=== PATIENT | male | born 1965 | race Hispanic/Latino ===

== ENCOUNTER → 2024-02-08 09:54 | Outpatient (REF) | payer OTHER, SELFPAY ==
[2024-02-08 11:45] LABS: Microalbumin, Random Urine > 57.0 mg/dl (0.6-1.7)
[2024-02-08 12:05] LABS: Glycohemoglobin (HgbA1c) 11.4 % (4.0-5.6)
[2024-02-08 12:54] LABS: ALT (SGPT) 39 U/L (0-50); AST (SGOT) 30 U/L (17-59); Albumin 3.4 g/dl (3.5-5.0); Alkaline Phosphatase 183 U/L (38-126); Blood Urea Nitrogen 34 mg/dl (9-20); Calcium 8.8 mg/dl (8.4-10.2); Carbon Dioxide 27 mmol/L (22-30); Chloride 101 mmol/L (98-107); Glucose 259 mg/dl (70-99); HDL Cholesterol 39 mg/dl; LDL Cholesterol, Calculated 114 mg/dl; Potassium 5.6 mmol/L (3.5-5.1); Sodium 139 mmol/L (135-145); Total Bilirubin 0.3 mg/dl (0.2-1.3); Total Cholesterol 196 mg/dl (50-199); Total Protein 6.4 g/dl (6.3-8.2); Triglyceride 217 mg/dl (10-149); Very Low Density Lipoprotein 43 mg/dl (0-30); eGFR 34.29
== END ==
LOC: REG 09:54
PROVIDERS: ATTENDING PHYSICIAN Nurse Practitioner Adult Health
DX: I10 Essential (primary) hypertension (principal); E11.65 Type 2 diabetes mellitus with hyperglycemia; E78.5 Hyperlipidemia, unspecified
CPT/HCPCS: 36415; 80053; 80061; 82043; 82570; 83036

== ENCOUNTER 2024-06-19 11:44 | Emergency (ER) | payer SELFPAY ==
[2024-06-19 11:46] VITALS: BP 174/94
[2024-06-19 12:13] VITALS: BMI 31.9
[2024-06-19 12:20] VITALS: BP 169/90
--- NOTE | 2024-06-19 13:08 | ED.GENMED ---
History of Present Illness
General
Chief Complaint: Fall
Source: patient
Exam Limitations: none and other (critical care technician used)
Time Seen by Provider: 06/19/24 12:01
Nursing documentation reviewed up to this point in time: agreed with
History of Present Illness
History of Present Illness:
58-year-old male past ministry of diabetes hypertension hyperlipidemia presenting to the emergency department today after hitting the back of his head yesterday while doing yard work. He fell lost consciousness and had trouble with some memory over
the next hour or so. Denies vomiting denies any numbness weakness some ongoing posterior head pain. Feels somewhat foggy today
Past History
Past History
ED Past Medical History: None
ED Past Surgical History: None
Review of Systems
Review of Systems
Allergies reviewed?: Yes
All Other Systems: ROS reviewed and negative except as documented in HPI and ROS
Phy Exam
Physical Exam
Physical Exam:
GENERAL: Alert , in no apparent distress
EYE: pupils equal and reactive
NECK: Supple, no significant adenopathy.
ENT: o/p clr, mmm.
CARDIAC: Regular rate and rhythm .
LUNGS: Clear breath sounds bilaterally, no acute respiratory distress, no wheezes/rales/rhonchi
ABDOMEN: Soft, without focal tenderness, no r/g, no cvat
NEUROLOGICAL: Alert and oriented, no focal neuro deficits
SKIN: Warm and dry, skin intact.
MUSCULOSKELETAL: No edema, well perfused.
PSYCH: Normal and appropriate interaction.
Course
Orders/Labs/Results
Orders:
Orders
06/19/24 12:27
CT Cervical Spine W/o Iv Contr Urgent
Comment:
Reason For Exam: fall hit back of head, midline mid neck pain
CT Head W/o Iv Contrast Urgent
Comment:
Reason For Exam: fall hit back of head LOC
Vital Signs
Initial and Last Documented VS:
Initial Vital Signs
Temp Pulse Resp BP Pulse Ox
98.0 F 87 18 174/94 99
06/19/24 11:46 06/19/24 11:46 06/19/24 11:46 06/19/24 11:46 06/19/24 11:46
Last Documented Vital Signs
Temp Pulse Resp BP Pulse Ox
98.0 F 84 18 169/90 98
06/19/24 11:46 06/19/24 12:20 06/19/24 12:20 06/19/24 12:20 06/19/24 12:20
MDM/Problems Addressed
MDM/Problems Addressed:
58-year-old male presenting to the emergency department today with concerns of hitting the back of his head yesterday with a ground-level fall. Had some memory issues at the time otherwise feeling better today. Not on blood thinners. On arrival
hypertensive but otherwise vital signs are normal. Does have some pain to the midline of the posterior neck. CT of the head and neck were ordered for further assessment. CT without emergent findings patient stable for discharge. Return
precautions given.
*Critical Care Note
Total Time (30-74mins, 75-104mins- exclusive of procedures): Not Applicable
ED Attending Note
-
Portions of this chart may have been created with voice recognition software.� Occasional wrong word or��sound alike� substitutions may have occurred due to the inherent limitations of voice recognition software.
Discharge Plan
Departure
Patient Disposition: Home (Routine Discharge)
Date of Disposition: 06/19/24
Time of Disposition: 13:49
Patient with high blood pressure during this ER visit?: No
Condition: Good
Covid-19: Not Applicable
Discharge Problem:
Head injury
Instructions: Head Injury in Adults (DC)
Referrals:
Jeimy Mace CRNP [Family Provider] -
Activity Restrictions/Additional Instructions:
You came to the emergency department today after a fall. Here you have a reassuring assessment. Please rest over the next few days. Return for any worsening, new or concerning symptoms.
Interventions
Interventions:
*Risk Screen - Suicide Last Done: 06/19/24 11:46
*General Assessment Last Done: 06/19/24 11:46
*Neglect/Abuse Screening Last Done: 06/19/24 11:46
*ED COVID-19 Vaccine History Last Done: 06/19/24 11:46
ED-Musculoskeletal Assessment Last Done: 06/19/24 12:13
ED- Neurological Assessment Last Done: 06/19/24 12:13
ED-Skin Assessment Last Done: 06/19/24 12:13
Discharge Date and Time
Print Language: TURKMEN
--- NOTE | 2024-06-19 13:59 | EDRN ---
[facility] [employer] [id number]: Reviewed discharge instructions with patient. Verbalized understanding. Ambulated with steady gait to the lobby.
[2024-06-19 14:00] VITALS: BP 160/78
== END 2024-06-19 14:00 | disposition home or self-care (01) ==
LOC: EMR 11:44
PROVIDERS: EMERGENCY PHYSICIAN Emergency Medicine; FAMILY PHYSICIAN Nurse Practitioner Psychiatric/Mental Health
DX: S09.90XA Unspecified injury of head, initial encounter (principal); W18.00XA Striking against unspecified object with subsequent fall, initial encounter; E11.9 Type 2 diabetes mellitus without complications; E78.5 Hyperlipidemia, unspecified; I10 Essential (primary) hypertension
CPT/HCPCS: 99284; 70450; 72125

== ENCOUNTER → 2024-07-25 07:10 | Outpatient (REF) | payer OTHER, SELFPAY ==
[2024-07-25 09:08] LABS: ALT (SGPT) 27 U/L (0-50); AST (SGOT) 28 U/L (17-59); Albumin 3.4 g/dl (3.5-5.0); Alkaline Phosphatase 210 U/L (38-126); Blood Urea Nitrogen 55 mg/dl (9-20); Calcium 8.5 mg/dl (8.4-10.2); Carbon Dioxide 25 mmol/L (22-30); Chloride 106 mmol/L (98-107); Glucose 265 mg/dl (70-99); HDL Cholesterol 35 mg/dl; Potassium 5.7 mmol/L (3.5-5.1); Sodium 138 mmol/L (135-145); Total Bilirubin 0.5 mg/dl (0.2-1.3); Total Cholesterol 280 mg/dl (50-199); Total Protein 6.1 g/dl (6.3-8.2); eGFR 19.52
[2024-07-25 09:38] LABS: Triglyceride 511 mg/dl (10-149)
[2024-07-25 12:18] LABS: Glycohemoglobin (HgbA1c) 9.9 % (4.0-5.6)
[2024-07-25 12:49] LABS: LDL Cholesterol, Direct 137 mg/dl
== END ==
LOC: CLINIC 07:10
PROVIDERS: ATTENDING PHYSICIAN Family Medicine
DX: I10 Essential (primary) hypertension (principal); E78.5 Hyperlipidemia, unspecified; E11.65 Type 2 diabetes mellitus with hyperglycemia
CPT/HCPCS: 36415; 80053; 80061; 83036; 83721

== ENCOUNTER → 2024-11-11 16:04 | Outpatient (REF) | payer OTHER, SELFPAY ==
[2024-11-11 17:11] LABS: Blood Urea Nitrogen 51 mg/dl (9-20); Calcium 8.0 mg/dl (8.4-10.2); Carbon Dioxide 25 mmol/L (22-30); Chloride 103 mmol/L (98-107); Glucose 179 mg/dl (70-99); Potassium 4.6 mmol/L (3.5-5.1); Sodium 134 mmol/L (135-145); eGFR 16.15
== END ==
LOC: CLINIC 16:04
PROVIDERS: ATTENDING PHYSICIAN Family Medicine
DX: I12.9 Hypertensive chronic kidney disease with stage 1 through stage 4 chronic kidney disease, or unspecified chronic kidney disease (principal)
CPT/HCPCS: 36415; 80048

== ENCOUNTER → 2024-11-21 08:55 | Outpatient (REF) | payer OTHER, SELFPAY ==
[2024-11-21 10:33] LABS: Hematocrit 41.6 % (39.0-52.0); Hemoglobin 14.5 g/dL (13.0-18.0); Mean Corp Hgb Conc. 34.9 g/dL (33.0-37.0); Mean Corpuscular Volume 87.6 fL (80.0-94.0); Nucleated Red Blood Cells % 0 % (-); Platelet Count 293 10^3/uL (130-400); Red Cell Dist. Width 12.0 % (11.5-14.5)
[2024-11-21 11:20] LABS: Blood Urea Nitrogen 62 mg/dl (9-20); Calcium 7.9 mg/dl (8.4-10.2); Carbon Dioxide 25 mmol/L (22-30); Chloride 100 mmol/L (98-107); Glucose 345 mg/dl (70-99); Magnesium 2.2 mg/dl (1.6-2.3); Potassium 4.5 mmol/L (3.5-5.1); Sodium 135 mmol/L (135-145); eGFR 15.25
== END ==
LOC: CLINIC 08:55
PROVIDERS: ATTENDING PHYSICIAN Family Medicine
DX: N18.4 Chronic kidney disease, stage 4 (severe) (principal)
CPT/HCPCS: 36415; 80048; 83735; 85025

== ENCOUNTER → 2024-12-02 09:56 | Outpatient (REF) | payer OTHER, SELFPAY | LOC: HWRAD 09:56 | PROVIDERS: ATTENDING PHYSICIAN Family Medicine | DX: N18.4 Chronic kidney disease, stage 4 (severe) (principal) | CPT/HCPCS: 76770 ==

== ENCOUNTER → 2024-12-08 07:14 | Outpatient (REF) | payer OTHER, SELFPAY ==
[2024-12-08 09:27] LABS: Blood Urea Nitrogen 59 mg/dl (9-20); Calcium 8.7 mg/dl (8.4-10.2); Carbon Dioxide 28 mmol/L (22-30); Chloride 101 mmol/L (98-107); Glucose 247 mg/dl (70-99); Potassium 4.2 mmol/L (3.5-5.1); Sodium 138 mmol/L (135-145); eGFR 15.25
[2024-12-08 10:20] LABS: Glycohemoglobin (HgbA1c) 12.0 % (4.0-5.6)
== END ==
LOC: REG 07:14
PROVIDERS: ATTENDING PHYSICIAN Family Medicine
DX: N18.9 Chronic kidney disease, unspecified (principal)
CPT/HCPCS: 36415; 80048; 83036; 83970

== ENCOUNTER → 2025-01-07 10:11 | Outpatient (REF) | payer OTHER, SELFPAY ==
[2025-01-07 11:44] LABS: Blood Urea Nitrogen 59 mg/dl (9-20); Calcium 8.6 mg/dl (8.4-10.2); Carbon Dioxide 25 mmol/L (22-30); Chloride 109 mmol/L (98-107); Glucose 141 mg/dl (70-99); Potassium 4.7 mmol/L (3.5-5.1); Sodium 136 mmol/L (135-145); eGFR 12.14
[2025-01-07 11:51] LABS: Vitamin D, 25-OH*** < 12.8 ng/mL (30-80)
== END ==
LOC: CLINIC 10:11
PROVIDERS: ATTENDING PHYSICIAN Family Medicine
DX: N18.4 Chronic kidney disease, stage 4 (severe) (principal)
CPT/HCPCS: 36415; 80048; 82306